=== PATIENT | male | born 1955 | race Caucasian/White ===

== ENCOUNTER 2016-12-05 05:54 | Day surgery (SDC) | payer OTHER ==
[2016-12-01 09:16] LABS: HEMATOCRIT 45.8 % (40.0-51.0); HEMOGLOBIN 15.4 g/dL (13.6-17.8)
[~2016-12-05] VITALS: Ht 167.6 cm; Wt 91.7 kg
--- NOTE | ~2016-12-05 | OP ---
Record Of Operation [facility] [address] [place]. [address] NAME: ARON NUNEZ : 57 STATUS : [place] [facility] [place] PAT#: [id number] AGE: 61 ADM/REG DATE : 12/05/16 MR#: [id number] REPORT SERV DATE: 12/05/16 DICTATED BY: ROMULO SAHNI DATE: 12/05/16 REPORT STATUS : Draft TRANSCRIBED BY: MODL DATE: 12/05/16 DATE OF PROCEDURE: 12/05/2016 PREOPERATIVE DIAGNOSIS: Basal cell carcinoma, left robbie cavum. POSTOPERATIVE DIAGNOSIS: Basal cell carcinoma, left robbie cavum. PROCEDURE PERFORMED: 1. Wide local excision, left robbie cavum basal cell carcinoma. 2. Full-thickness skin graft reconstruction of left 2.1 x 2.0 cm robbie cavum defect. FARM HELPER: Chandana Hoff. ANESTHESIA: General. COMPLICATIONS: None. CONDITION: Stable to recovery. INDICATIONS: A 61-year-old male with basal cell carcinoma of the left robbie cavum. Risks, benefits, and alternatives to excision and reconstruction were explained, and he agreed. PROCEDURE IN DETAIL: The patient was identified in preop holding, taken back to the operating room, and placed supine on the operating room table. General anesthesia was established. He was prepped and draped in a standard fashion for the operation. Using 2.5X loupe magnification and headlight illumination, the operation commenced. Initially, the lesion was outlined with a surgical ink pen and a 3-4 mm margin was marked around it. It was infiltrated with 3 mL of 1% lidocaine with 1:100,000 epinephrine. A 15C blade was used to make an incision around the lesion. It was stitched at 12 o'clock and sent to Pathology for analysis. All margins were clear. There was a small residual basal cell carcinoma in the biopsy site. The defect was 2 x 2 cm in dimension. A small amount of cartilage was excised to create a smooth wound bed. The left supraclavicular neck skin was harvested for full-thickness skin graft at the level of the dermal plane. The donor site was closed with a running 4-0 Prolene suture and some deep 3-0 Vicryl sutures. The full-thickness skin graft was thinned with the tenotomy scissors down to the dermal level and it was meshed with a 15 blade and inset to the 2.1 x 2.0 cm defect using 4-0 chromic suture. A Xeroform gauze bolster was placed and secured with 2-0 silk sutures in four quadrants. The patient was then awakened and taken to recovery. There were no complications. PH/MODL Romulo Sahni M.D. Record Of Operation [facility] [id number] [place]. [address] NAME: ARON NUNEZ : 57 STATUS : [place] [facility] [place] PAT#: [id number] AGE: 61 ADM/REG DATE : 12/05/16 MR#: [id number] REPORT SERV DATE: 12/05/16 DICTATED BY: ROMULO SHANI DATE: 12/05/16 REPORT STATUS : Draft TRANSCRIBED BY: MODL DATE: 12/05/16 / [id number] CC: Shane Beltran LISA L
[~2016-12-05 05:54] MED LIST: ALLERGY SHOTS; LOFIBRA54 MG PO; ZOCOR40 PO; ZYRTEC ALLGY10 MG PO
== END 2016-12-05 12:01 | disposition home or self-care (01) ==
LOC: SDC 05:54
PROVIDERS: Specialist
PROC: 0HR3X73 Replacement of Left Ear Skin with Autologous Tissue Substitute, Full Thickness, External Approach (ICD-10-PCS; principal; 2016-12-05 07:15)
DX: C44.219 Basal cell carcinoma of skin of left ear and external auricular canal (principal); Z79.899 Other long term (current) drug therapy; Z98.890 Other specified postprocedural states
CPT/HCPCS: 85014; 85018; 88305; 88331; 88332; 93005; J0690; J1885; J2250; J2405; J3010